=== PATIENT | female | born 1935 | race Caucasian/White ===

== ENCOUNTER 2017-12-30 13:39 | Emergency (ER) | payer MEDICARE, SELFPAY ==
[2017-12-30 13:52] VITALS: BP 109/65; PULSE 81; RESP 20; O2SAT 98; BMI 22.8
[2017-12-30 14:20] LABS: Basophils % 0.5 % (0.1-2.0); Eosinophils # 0.2 K/mm3 (0.0-0.4); Eosinophils % 2.2 % (0.1-12.0); Hematocrit 34.9 % (37.0-47.0); Hemoglobin 11.6 g/dL (12.2-16.2); Lymphocytes % 23.7 K/mm3 (10-50); Mean Corpuscular HGB Conc 33.3 g/dL (31.8-35.4); Mean Corpuscular Hemoglobin 29.4 pg (27.0-31.2); Mean Corpuscular Volume 88.3 fl (81-99); Mean Platelet Volume 7.7 fl (7.4-10.4); Monocytes # 0.5 K/mm3 (0.1-1.0); Monocytes % 6.3 % (1.7-9.3); Neutrophils # 5.6 K/mm3 (1.8-7.8); Neutrophils % 67.3 % (37.0-80.0); Platelet Count 402 K/mm3 (142-424); Red Blood Count 3.95 M/mm3 (4.20-5.40); Red Cell Distribution Width 12.7 % (11.5-17.5); White Blood Count 8.3 K/mm3 (4.8-10.8)
[2017-12-30 14:40] LABS: INR 1.36 (0.9-1.1); Prothrombin Time 14.7 seconds (9.4-11.8)
[2017-12-30 14:43] LABS: Alanine Aminotransferase 19 U/L (12-78); Albumin Level 2.3 gm/dL (3.4-5.0); Albumin/Globulin Ratio 0.7 (1.1-1.8); Alkaline Phosphatase 66 U/L (46-116); Anion Gap 12.3 mEq/L (5-15); Aspartate Amino Transferase 22 U/L (15-37); Bilirubin,Total 0.7 mg/dL (0.2-1.0); Blood Urea Nitrogen 17 mg/dL (7-18); Calcium 8.2 mg/dL (8.5-10.1); Carbon Dioxide 27 mmol/L (21.0-32.0); Chloride 101 mmol/L (98-107); Creatine Kinase 31 U/L (26-192); Creatinine Clearance Estimated 31 mL/min (0-300); Creatinine,Serum 1.25 mg/dL (0.55-1.02); Estimated Glomerular Filt Rate 41 ml/min (>60); GFR (African American) 50 ML/MIN (>60); Globulin 3.4 gm/dl (1.3-3.2); Glucose 180 mg/dL (74-106); Potassium 3.3 mmoL/L (3.5-5.1); Sodium 137 mmol/L (136-145); Total Protein,Serum 5.7 gm/dL (6.4-8.2); Troponin I < 0.02 ng/ml (0.00-0.06)
[2017-12-30 14:44] LABS: CKMB Relative Index 1.6 U/L (0-4.0); Creatine Kinase MB < 0.5 mg/ml (0.0-3.6)
--- NOTE | 2017-12-30 14:57 | [facility].EDCP ---
ED Disposition Clinical Impression: Abdominal pain Qualifiers: Abdominal location: unspecified location Qualified Code(s): R10.9 - Unspecified abdominal pain Disposition: Home, Self-Care Condition on Discharge: Good Instructions: DI for Abdominal Pain-Adult Additional Instructions: see pcp for follow up Referrals: Provider,Referral, [Primary Care Provider] - - Critical Care Critical Care Time: No Attestation: On 12/30/17, the high probability of a clinically significant, sudden or life threatening deterioration of the following system(s) required my full and direct attention, intervention and personal management. The time I documented below is in addition to time spent performing reported procedures but includes the following listed in this critical care notation. Medical Decision Making - Medical Records Medical records reviewed: Yes: I reviewed the patient's medical records. Vital Signs: 12/30/17 13:52 Pulse Rate [Right Brachial] 81 Respiratory Rate 20 Blood Pressure [Right Arm] 109/65 Blood Pressure Mean [Right Arm] 79 Blood Pressure Source [Right Arm] Automatic Cuff Blood Pressure Position [Right Arm] Supine 02 Sat by Pulse Oximetry 98 Oxygen Delivery Method Room Air - Lab Data Lab Results 12/30/17 14:10: WBC 8.3, RBC 3.95 L, Hgb 11.6 L, Hct 34.9 L, MCV 88.3, MCH 29.4, MCHC 33.3, RDW 12.7, Plt Count 402, MPV 7.7, Neut % (Auto) 67.3, Lymph % (Auto) 23.7, [place] % (Auto) 6.3, Eos % (Auto) 2.2, Baso % (Auto) 0.5, Neut # (Auto) 5.6, Lymph # (Auto) 2.0, [place] # (Auto) 0.5, Eos # (Auto) 0.2, Baso # (Auto) 0.0 12/30/17 14:10: PT 14.7 H, INR 1.36 H 12/30/17 14:10: Sodium 137, Potassium 3.3 L, Chloride 101, Carbon Dioxide 27, Anion Gap 12.3, BUN 17, Creatinine 1.25 H, Estimated Creat Clear 31, Estimated GFR 41 L, Est GFR ( Amer) 50 L, Glucose 180 H, Calcium 8.2 L, Total Bilirubin 0.7, AST 22, ALT 19, Alkaline Phosphatase 66, Total Creatine Kinase 31, CK-MB (CK-2) < 0.5, CK-MB (CK-2) Rel Index 1.6, Troponin I < 0.02, Total Protein 5.7 L, Albumin 2.3 L, Globulin 3.4 H, Albumin/Globulin Ratio 0.7 L Result diagrams: 12/30/17 14:10 12/30/17 14:10 Orders (Tests/Meds): ORDERS Category Date Time Status CT abdomen pelvis wo con Stat Cat Scan 12/30/17 14:06 Ordered Chest XR 2 view (NOT portable) [XR chest 2V] Stat Exams 12/30/17 14:11 Ordered - ECG Data Tracing #1 I reviewed this ECG and interpreted as documented below: Ischemic changes: non-specific ST-T wave changes - Peter Inquiry Pt receiving controlled substance: No Chest Pain HPI - General Stated Complaint: stomach pain Time Seen by Provider: 12/30/17 14:57 Mode of Arrival: Ambulatory Source of Information: Patient Limitations: No Limitations Description of Symptoms (Recalled from ER Triage Doc. by RN): PT C/O EPIGASTRIC PAIN FOR 3 DAYS. PT SAYS SHE HAS NO APPETITE. PT DENIES N/V/D. - History of Present Illness HPI narrative: pt denied any chst or abd pain - no vomiting MD complaint: other Severity: mild - Related Data Home Medications Medication Instructions Recorded Confirmed Amlodipine Besylate [Norvasc 10mg 10 mg PO DAILY 12/30/17 12/30/17 tablet] Atorvastatin Calcium [Atorvastatin 10 mg PO DAILY 12/30/17 12/30/17 10mg Tab] Carvedilol [Carvedilol 6.25mg Tab] 6.25 mg PO DAILY 12/30/17 12/30/17 Fenofibrate Nanocrystallized 145 mg PO DAILY 12/30/17 12/30/17 [Fenofibrate] Fluoxetine HCl [Prozac 20mg 20 mg PO DAILY 12/30/17 12/30/17 Capsule] Furosemide [Furosemide 20mg Tab] 20 mg PO DAILY 12/30/17 12/30/17 Levothyroxine Sodium 50 mcg PO DAILY 12/30/17 12/30/17 [Levothyroxine 50mcg (0.05mg) Tab] Loratadine [Claritin 10mg Tablet] 10 mg PO DAILY 12/30/17 12/30/17 Trazodone HCl 50 mg PO HS 12/30/17 12/30/17 Valsartan [Valsartan] 320 mg PO DAILY 12/30/17 12/30/17 Warfarin Sodium [Warfarin Sodium] 2.5 mg PO DAILY 12/30/17 12/30/17 glyBURIDE [Diabeta 5mg tablet] 5 mg PO DAILY 12/30/17
--- NOTE | 2017-12-30 15:00 | ED_ITS ---
ED Disposition Clinical Impression: Abdominal pain Qualifiers: Abdominal location: unspecified location Qualified Code(s): R10.9 - Unspecified abdominal pain Disposition: Home, Self-Care Condition on Discharge: Good Instructions: DI for Abdominal Pain-Adult Additional Instructions: see pcp for follow up Referrals: Provider,Referral, [Primary Care Provider] - - Critical Care Critical Care Time: No Attestation: On 12/30/17, the high probability of a clinically significant, sudden or life threatening deterioration of the following system(s) required my full and direct attention, intervention and personal management. The time I documented below is in addition to time spent performing reported procedures but includes the following listed in this critical care notation. Medical Decision Making - Medical Records Medical records reviewed: Yes: I reviewed the patient's medical records. Vital Signs: 12/30/17 13:52 Pulse Rate [Right Brachial] 81 Respiratory Rate 20 Blood Pressure [Right Arm] 109/65 Blood Pressure Mean [Right Arm] 79 Blood Pressure Source [Right Arm] Automatic Cuff Blood Pressure Position [Right Arm] Supine 02 Sat by Pulse Oximetry 98 Oxygen Delivery Method Room Air - Lab Data Lab Results 12/30/17 14:10: WBC 8.3, RBC 3.95 L, Hgb 11.6 L, Hct 34.9 L, MCV 88.3, MCH 29.4 , MCHC 33.3, RDW 12.7, Plt Count 402, MPV 7.7, Neut % (Auto) 67.3, Lymph % (Auto ) 23.7, [place] % (Auto) 6.3, Eos % (Auto) 2.2, Baso % (Auto) 0.5, Neut # (Auto) 5.6, Lymph # (Auto) 2.0, [place] # (Auto) 0.5, Eos # (Auto) 0.2, Baso # (Auto) 0.0 12/30/17 14:10: PT 14.7 H, INR 1.36 H 12/30/17 14:10: Sodium 137, Potassium 3.3 L, Chloride 101, Carbon Dioxide 27, Anion Gap 12.3, BUN 17, Creatinine 1.25 H, Estimated Creat Clear 31, Estimated GFR 41 L, Est GFR ( Amer) 50 L, Glucose 180 H, Calcium 8.2 L, Total Bilirubin 0.7, AST 22, ALT 19, Alkaline Phosphatase 66, Total Creatine Kinase 31 , CK-MB (CK-2) < 0.5, CK-MB (CK-2) Rel Index 1.6, Troponin I < 0.02, Total Protein 5.7 L, Albumin 2.3 L, Globulin 3.4 H, Albumin/Globulin Ratio 0.7 L Result diagrams: 12/30/17 14:10 12/30/17 14:10 Orders (Tests/Meds): ORDERS Category Date Time Status CT abdomen pelvis wo con Stat Cat Scan 12/30/17 14:06 Ordered Chest XR 2 view (NOT portable) [XR chest 2V] Stat Exams 12/30/17 14:11 Ordered - ECG Data Tracing #1 I reviewed this ECG and interpreted as documented below: Ischemic changes: non-specific ST-T wave changes - Peter Inquiry Pt receiving controlled substance: No Chest Pain HPI - General Stated Complaint: stomach pain Time Seen by Provider: 12/30/17 14:57 Mode of Arrival: Ambulatory Source of Information: Patient Limitations: No Limitations Description of Symptoms (Recalled from ER Triage Doc. by RN): PT C/O EPIGASTRIC PAIN FOR 3 DAYS. PT SAYS SHE HAS NO APPETITE. PT DENIES N/V/D. - History of Present Illness HPI narrative: pt denied any chst or abd pain - no vomiting MD complaint: other Severity: mild - Related Data Home Medications Medication Instructions Recorded Confirmed Amlodipine Besylate [Norvasc 10mg 10 mg PO DAILY 12/30/17 12/30/17 tablet] Atorvastatin Calcium [Atorvastatin 10 mg PO DAILY 12/30/17 12/30/17 10mg Tab] Carvedilol [Carvedilol 6.25mg Tab] 6.25 mg PO DAILY 12/30/17 12/30/17
[2017-12-30 15:04] VITALS: BP 130/70; PULSE 75; RESP 14; TEMP 36.8; O2SAT 98
== END 2017-12-30 15:05 | disposition home or self-care (01) ==
LOC: UTC 13:43 → ER 13:49
PROVIDERS: Emergency Provider Emergency Medicine
DX: R10.9 Unspecified abdominal pain (principal)
CPT/HCPCS: 80053; 82550; 82553; 84484; 85025; 85610; 93005; 99281

== ENCOUNTER 2018-01-27 15:07 | Emergency (ER) | payer MEDICARE, SELFPAY ==
[2018-01-27 15:23] VITALS: BP 135/73; PULSE 76; RESP 16; TEMP 36.7; O2SAT 97; BMI 23.0
--- NOTE | 2018-01-27 16:39 | [facility]H.EDWEAK ---
ED Disposition Clinical Impression: Weakness Disposition: Left Against Medical Advice Condition on Discharge: Good Instructions: DI for Fatigue Additional Instructions: Please cell dr. Asher's office and follow up with him in 2-3 days, for mandatory re-evaluation. Referrals: Gagan Asher [Primary Care Provider] - Time of Disposition: 16:40 - Critical Care Critical Care Time: No Attestation: On 01/27/18, the high probability of a clinically significant, sudden or life threatening deterioration of the following system(s) required my full and direct attention, intervention and personal management. The time I documented below is in addition to time spent performing reported procedures but includes the following listed in this critical care notation. Medical Decision Making - Medical Records Medical records reviewed: Yes: I reviewed the patient's medical records. Vital Signs: 01/27/18 15:23 01/27/18 17:30 Temperature 98.0 F 98.0 F Temperature Source Oral Pulse Rate 76 Pulse Rate [Left Radial] 76 Respiratory Rate 16 16 Blood Pressure 135/73 Blood Pressure [Left Arm] 135/73 Blood Pressure Mean [Left Arm] 93 Blood Pressure Source [Left Arm] Automatic Cuff Blood Pressure Position [Left Arm] Sitting 02 Sat by Pulse Oximetry 97 Oxygen Delivery Method Room Air Room Air - Peter Inquiry Pt receiving controlled substance: No - Reevaluation(s) Time: 16:38 Reevaluation #1: Patient wants to leave against medical advice, she is AAOx3, competent to make medical decisions, was made aware of possible complications associated with her departure, including , loss of current lifestyle, etc. Weakness HPI - General Chief complaint: Weakness Stated complaint: Weakness Mode of Arrival: Wheelchair Limitations: Physical Limitations Description of Symptoms (Recalled from ER Triage Doc. by RN): REPORTS WEAKNESS AND LOSS OF APPETITE. - History of Present Illness HPI Narrative: The patient is denying any symptoms, stating that she should not be here, refuses any workup. MD Complaint: generalized weakness Onset (ago): unknown Duration: now resolved - Related Data Home Medications Medication Instructions Recorded Confirmed Amlodipine Besylate [Norvasc 10mg 10 mg PO DAILY 12/30/17 12/30/17 tablet] Atorvastatin Calcium [Atorvastatin 10 mg PO DAILY 12/30/17 12/30/17 10mg Tab] Carvedilol [Carvedilol 6.25mg Tab] 6.25 mg PO DAILY 12/30/17 12/30/17 Fenofibrate Nanocrystallized 145 mg PO DAILY 12/30/17 12/30/17 [Fenofibrate] Fluoxetine HCl [Prozac 20mg 20 mg PO DAILY 12/30/17 12/30/17 Capsule] Furosemide [Furosemide 20mg Tab] 20 mg PO DAILY 12/30/17 12/30/17 Levothyroxine Sodium 50 mcg PO DAILY 12/30/17 12/30/17 [Levothyroxine 50mcg (0.05mg) Tab] Loratadine [Claritin 10mg Tablet] 10 mg PO DAILY 12/30/17 12/30/17 Trazodone HCl 50 mg PO HS 12/30/17 12/30/17 Valsartan [Valsartan] 320 mg PO DAILY 12/30/17 12/30/17 Warfarin Sodium [Warfarin Sodium] 2.5 mg PO DAILY 12/30/17 12/30/17 glyBURIDE [Diabeta 5mg tablet] 5 mg PO DAILY 12/30/17 12/30/17 Allergies Allergy/AdvReac Type Severity Reaction Status Date / Time No Known Allergies Allergy Verified 01/27/18 15:29 [facility] History I have reviewed the patient's past medical history: Yes Medical History: Reports:: Diabetes Mellitus Type 2 - Social History Educational Level: Completed College Smoking Status: Never smoker Alcohol Intake: never - Psychiatric History Expresses thoughts of harming self/others: None Suicide Plan Description: No Plan ROS Obtained: Yes All systems reviewed & no additional complaints, Yes Systems reviewed as appropriate & no additional complaints - Gastrointestinal Gastrointestingal: Reports: as per HPI, other (loss of appetite, but the patient is now denying any active symptoms) Physical Exam - General General appearance: alert, in no apparent distress - Head Head exam: atraumatic, normocephali
--- NOTE | 2018-01-27 16:42 | ED_ITS ---
ED Disposition Clinical Impression: Weakness Disposition: Left Against Medical Advice Condition on Discharge: Good Instructions: DI for Fatigue Additional Instructions: Please cell dr. Asher's office and follow up with him in 2-3 days, for mandatory re-evaluation. Referrals: Gagan Asher [Primary Care Provider] - Time of Disposition: 16:40 - Critical Care Critical Care Time: No Attestation: On 01/27/18, the high probability of a clinically significant, sudden or life threatening deterioration of the following system(s) required my full and direct attention, intervention and personal management. The time I documented below is in addition to time spent performing reported procedures but includes the following listed in this critical care notation. Medical Decision Making - Medical Records Medical records reviewed: Yes: I reviewed the patient's medical records. Vital Signs: 01/27/18 15:23 01/27/18 17:30 Temperature 98.0 F 98.0 F Temperature Source Oral Pulse Rate 76 Pulse Rate [Left Radial] 76 Respiratory Rate 16 16 Blood Pressure 135/73 Blood Pressure [Left Arm] 135/73 Blood Pressure Mean [Left Arm] 93 Blood Pressure Source [Left Arm] Automatic Cuff Blood Pressure Position [Left Arm] Sitting 02 Sat by Pulse Oximetry 97 Oxygen Delivery Method Room Air Room Air - Peter Inquiry Pt receiving controlled substance: No - Reevaluation(s) Time: 16:38 Reevaluation #1: Patient wants to leave against medical advice, she is AAOx3, competent to make medical decisions, was made aware of possible complications associated with her departure, including , loss of current lifestyle, etc. Weakness HPI - General Chief complaint: Weakness Stated complaint: Weakness Mode of Arrival: Wheelchair Limitations: Physical Limitations Description of Symptoms (Recalled from ER Triage Doc. by RN): REPORTS WEAKNESS AND LOSS OF APPETITE. - History of Present Illness HPI Narrative: The patient is denying any symptoms, stating that she should not be here, refuses any workup. MD Complaint: generalized weakness Onset (ago): unknown Duration: now resolved - Related Data Home Medications Medication Instructions Recorded Confirmed Amlodipine Besylate [Norvasc 10mg 10 mg PO DAILY 12/30/17 12/30/17 tablet] Atorvastatin Calcium [Atorvastatin 10 mg PO DAILY 12/30/17 12/30/17 10mg Tab] Carvedilol [Carvedilol 6.25mg Tab] 6.25 mg PO DAILY 12/30/17 12/30/17 Fenofibrate Nanocrystallized 145 mg PO DAILY 12/30/17 12/30/17 [Fenofibrate] Fluoxetine HCl [Prozac 20mg 20 mg PO DAILY 12/30/17 12/30/17 Capsule] Furosemide [Furosemide 20mg Tab] 20 mg PO DAILY 12/30/17 12/30/17 Levothyroxine Sodium 50 mcg PO DAILY 12/30/17 12/30/17 [Levothyroxine 50mcg (0.05mg) Tab] Loratadine [Claritin 10mg Tablet] 10 mg PO DAILY 12/30/17 12/30/17 Trazodone HCl 50 mg PO HS 12/30/17 12/30/17 Valsartan [Valsartan] 320 mg PO DAILY 12/30/17 12/30/17 Warfarin Sodium [Warfarin Sodium] 2.5 mg PO DAILY 12/30/17 12/30/17 glyBURIDE [Diabeta 5mg tablet] 5 mg PO DAILY 12/30/17 12/30/17 Allergies Allergy/AdvReac Type Severity Reaction Status Date / Time No Known Allergies Allergy Verified 01/27/18 15:29 [facility] History I have reviewed
[2018-01-27 17:30] VITALS: BP 135/73; PULSE 76; RESP 16; TEMP 36.7; O2SAT 97
== END 2018-01-27 17:15 | disposition left against medical advice (07) ==
PROVIDERS: Emergency Provider Emergency Medicine; PCP Family Medicine
DX: R53.1 Weakness (principal); Z53.21 Procedure and treatment not carried out due to patient leaving prior to being seen by health care provider; E11.9 Type 2 diabetes mellitus without complications; Z79.01 Long term (current) use of anticoagulants; Z79.84 Long term (current) use of oral hypoglycemic drugs; Z79.899 Other long term (current) drug therapy
CPT/HCPCS: 99281

== ENCOUNTER 2018-02-06 11:32 | Emergency (ER) | payer MEDICARE, SELFPAY ==
[2018-02-06 11:34] VITALS: BP 139/82; PULSE 85; RESP 16; TEMP 37.1; O2SAT 98; BMI 24.3
[2018-02-06 11:39] VITALS: BMI 23.6
--- NOTE | 2018-02-06 11:41 | XR_ITS ---
XR chest portable HISTORY: ITS.REASON: chest pain ORDERING PHYSICIAN: PATIENT AGE: 82 years COMPARISON: 10/03/2016 FINDINGS: The cardiomediastinal silhouette and pulmonary vascularity are within normal limits. Small patchy area of increased density is present in the left lower lung zone adjacent to the heart and could be due to small area of atelectasis or infiltrate or interval developing fibrotic change. The remaining lungs are clear aside from a calcified granuloma in the right midlung. IMPRESSION: Patchy density left mid to lower lung zone which may be due to an area of atelectasis or infiltrate or developing fibrosis
--- NOTE | 2018-02-06 11:44 | [facility]H.EDCP ---
ED Disposition Clinical Impression: Stable angina Disposition: Home, Self-Care Condition on Discharge: Good Additional Instructions: See your color buffer for follow up in one week; continue current medications. Referrals: Gagan Asher [Primary Care Provider] - Julio Mcfadden MD [Staff Physician] - - Critical Care Critical Care Time: No Attestation: On , the high probability of a clinically significant, sudden or life threatening deterioration of the following system(s) required my full and direct attention, intervention and personal management. The time I documented below is in addition to time spent performing reported procedures but includes the following listed in this critical care notation. Medical Decision Making - Medical Records Medical records reviewed: Yes: I reviewed the patient's medical records. Vital Signs: 02/06/18 11:34 Temperature 98.8 F Temperature Source Oral Pulse Rate [Right Radial] 85 Respiratory Rate 16 Blood Pressure [Right Arm] 139/82 Blood Pressure Mean [Right Arm] 101 Blood Pressure Source [Right Arm] Automatic Cuff Blood Pressure Position [Right Arm] Supine 02 Sat by Pulse Oximetry 98 Oxygen Delivery Method Room Air - Lab Data Lab results reviewed: Yes: I reviewed the patient's lab results. Lab Results 02/06/18 11:42: WBC 6.7, RBC 4.46, Hgb 12.7, Hct 40.9, MCV 91.8, MCH 28.5, MCHC 31.1 L, RDW 13.2, Plt Count 346, MPV 7.7, Neut % (Auto) 51.2, Lymph % (Auto) 40.4, [place] % (Auto) 5.0, Eos % (Auto) 2.7, Baso % (Auto) 0.7, Neut # (Auto) 3.4, Lymph # (Auto) 2.7, [place] # (Auto) 0.3, Eos # (Auto) 0.2, Baso # (Auto) 0.1 02/06/18 11:42: Sodium 135 L, Potassium 3.1 L, Chloride 100, Carbon Dioxide 28, Anion Gap 10.1, BUN 9, Creatinine 1.24 H, Estimated Creat Clear 33, Estimated GFR 41 L, Est GFR ( Amer) 50 L, Glucose 218 H, Calcium 8.1 L, Total Bilirubin 0.6, AST 20, ALT 19, Alkaline Phosphatase 112, Total Creatine Kinase 33, CK-MB (CK-2) < 0.5, CK-MB (CK-2) Rel Index 1.5, Troponin I < 0.02, Total Protein 6.4, Albumin 2.4 L, Globulin 4.0 H, Albumin/Globulin Ratio 0.6 L 02/06/18 11:42: PT 11.3, INR 1.05 02/06/18 14:04: Troponin I < 0.02 Result diagrams: 02/06/18 11:42 02/06/18 11:42 Orders (Tests/Meds): ED MEDICATIONS Discontinued Medications Generic Name Dose Route Start Last Admin Trade Name Franklin PRN Reason Stop Dose Admin Aspirin 324 mg 02/06/18 11:41 02/06/18 11:43 Aspirin 81mg Chewable Tablet PO 02/06/18 11:42 324 mg ONCE ONE Administration - Radiology Data #1 Image(s): Chest Image Reviewed: Yes I have reviewed radiologist's interpretation Preliminary Findings: Abnormal (possible atelectasis or fibrosis on L seen by radiology; (no clin correlation for pneumonia:)) - ECG Data Tracing #1 I reviewed this ECG and interpreted as documented below: NSR, ST depression seen in December 30, 2017 laterally, but more pronounced today; also seeing some ischemic changes inferiorly today that are new ST depression. No ectopy/. ECG initial impression date: 02/06/18 ECG initial impression time: 11:28 (EKG done at 11:28 MD at bedside) Normal Sinus Rhythm: Yes - Physician Consults Physician Consulted: Jeff ZHANG/karlee Reason -: Cardiology Eval/Care - Peter Inquiry Pt receiving controlled substance: No Medical Decision Making Narrative: Cardiology requested second trop which was nl; they requested ECHO which showed very mod AI, small fluid around heart; EF 55-60 per cent; patient stable and no complaints at d/c Chest Pain HPI - General Stated Complaint: chest pain Time Seen by Provider: 02/06/18 11:35 Mode of Arrival: Ambulatory Source of Information: Patient, Relative Limitations: No Limitations - History of Present Illness HPI narrative: Patient states that she woke up this morning sometime before 7:00. That point she had not eaten breakfast and had not experienced any chest pain. She was at rest she had a brief episode
--- NOTE | 2018-02-06 11:48 | ED_ITS ---
ED Disposition Clinical Impression: Stable angina Disposition: Home, Self-Care Condition on Discharge: Good Additional Instructions: See your signs sales representative for follow up in one week; continue current medications. Referrals: Gagan Asher [Primary Care Provider] - Julio Mcfadden MD [Staff Physician] - - Critical Care Critical Care Time: No Attestation: On , the high probability of a clinically significant, sudden or life threatening deterioration of the following system(s) required my full and direct attention, intervention and personal management. The time I documented below is in addition to time spent performing reported procedures but includes the following listed in this critical care notation. Medical Decision Making - Medical Records Medical records reviewed: Yes: I reviewed the patient's medical records. Vital Signs: 02/06/18 11:34 Temperature 98.8 F Temperature Source Oral Pulse Rate [Right Radial] 85 Respiratory Rate 16 Blood Pressure [Right Arm] 139/82 Blood Pressure Mean [Right Arm] 101 Blood Pressure Source [Right Arm] Automatic Cuff Blood Pressure Position [Right Arm] Supine 02 Sat by Pulse Oximetry 98 Oxygen Delivery Method Room Air - Lab Data Lab results reviewed: Yes: I reviewed the patient's lab results. Lab Results 02/06/18 11:42: WBC 6.7, RBC 4.46, Hgb 12.7, Hct 40.9, MCV 91.8, MCH 28.5, MCHC 31.1 L, RDW 13.2, Plt Count 346, MPV 7.7, Neut % (Auto) 51.2, Lymph % (Auto) 40.4, [place] % (Auto) 5.0, Eos % (Auto) 2.7, Baso % (Auto) 0.7, Neut # (Auto) 3.4 , Lymph # (Auto) 2.7, [place] # (Auto) 0.3, Eos # (Auto) 0.2, Baso # (Auto) 0.1 02/06/18 11:42: Sodium 135 L, Potassium 3.1 L, Chloride 100, Carbon Dioxide 28, Anion Gap 10.1, BUN 9, Creatinine 1.24 H, Estimated Creat Clear 33, Estimated GFR 41 L, Est GFR ( Amer) 50 L, Glucose 218 H, Calcium 8.1 L, Total Bilirubin 0.6, AST 20, ALT 19, Alkaline Phosphatase 112, Total Creatine Kinase 33, CK-MB (CK-2) < 0.5, CK-MB (CK-2) Rel Index 1.5, Troponin I < 0.02, Total Protein 6.4, Albumin 2.4 L, Globulin 4.0 H, Albumin/Globulin Ratio 0.6 L 02/06/18 11:42: PT 11.3, INR 1.05 02/06/18 14:04: Troponin I < 0.02 Result diagrams: 02/06/18 11:42 02/06/18 11:42 Orders (Tests/Meds): ED MEDICATIONS Discontinued Medications Generic Name Dose Route Start Last Admin Trade Name Teodoroq PRN Reason Stop Dose Admin Aspirin 324 mg 02/06/18 11:41 02/06/18 11:43 Aspirin 81mg Chewable Tablet PO 02/06/18 11:42 324 mg ONCE ONE Administration - Radiology Data #1 Image(s): Chest Image Reviewed: Yes I have reviewed radiologist's interpretation Preliminary Findings: Abnormal (possible atelectasis or fibrosis on L seen by radiology; (no clin correlation for pneumonia:)) - ECG Data Tracing #1 I reviewed this ECG and interpreted as documented below: NSR, ST depression seen in December 30, 2017 laterally, but more pronounced today ; also seeing some ischemic changes inferiorly today that are new ST depression. No ectopy/. ECG initial impression date: 02/06/18 ECG initial impression time: 11:28 (EKG done at 11:28 MD at bedside) Normal Sinus Rhythm: Yes - Physician Consults Physician Consulted: Jeff ZHANG/card Reason -: Cardiology Eval/Care - Peter Inquiry Pt receiving controlled substance: No Medical Decision Making Narrative: Cardiology requested second trop w
[2018-02-06 11:52] LABS: Basophils # 0.1 K/mm3 (0-0.2); Basophils % 0.7 % (0.1-2.0); Eosinophils # 0.2 K/mm3 (0.0-0.4); Eosinophils % 2.7 % (0.1-12.0); Hematocrit 40.9 % (37.0-47.0); Hemoglobin 12.7 g/dL (12.2-16.2); Lymphocytes # 2.7 K/mm3 (0.7-4.5); Lymphocytes % 40.4 K/mm3 (10-50); Mean Corpuscular HGB Conc 31.1 g/dL (31.8-35.4); Mean Corpuscular Hemoglobin 28.5 pg (27.0-31.2); Mean Corpuscular Volume 91.8 fl (81-99); Mean Platelet Volume 7.7 fl (7.4-10.4); Monocytes # 0.3 K/mm3 (0.1-1.0); Neutrophils # 3.4 K/mm3 (1.8-7.8); Neutrophils % 51.2 % (37.0-80.0); Platelet Count 346 K/mm3 (142-424); Red Blood Count 4.46 M/mm3 (4.20-5.40); Red Cell Distribution Width 13.2 % (11.5-17.5); White Blood Count 6.7 K/mm3 (4.8-10.8)
--- NOTE | 2018-02-06 11:52 | PC.NURSE ---
Pt resting on gurney with not complaints other than having mid sternal nod radiating chest pain without SOB or diaphoresis. Accompainied by sister and brother in law which assist with her history and symptoms.
[2018-02-06 12:16] LABS: Alanine Aminotransferase 19 U/L (12-78); Albumin Level 2.4 gm/dL (3.4-5.0); Albumin/Globulin Ratio 0.6 (1.1-1.8); Alkaline Phosphatase 112 U/L (46-116); Anion Gap 10.1 mEq/L (5-15); Aspartate Amino Transferase 20 U/L (15-37); Bilirubin,Total 0.6 mg/dL (0.2-1.0); Blood Urea Nitrogen 9 mg/dL (7-18); Calcium 8.1 mg/dL (8.5-10.1); Carbon Dioxide 28 mmol/L (21.0-32.0); Chloride 100 mmol/L (98-107); Creatine Kinase 33 U/L (26-192); Creatinine Clearance Estimated 33 mL/min (0-300); Creatinine,Serum 1.24 mg/dL (0.55-1.02); Estimated Glomerular Filt Rate 41 ml/min (>60); GFR (African American) 50 ML/MIN (>60); Glucose 218 mg/dL (74-106); Potassium 3.1 mmoL/L (3.5-5.1); Sodium 135 mmol/L (136-145); Total Protein,Serum 6.4 gm/dL (6.4-8.2); Troponin I < 0.02 ng/ml (0.00-0.06)
[2018-02-06 12:19] LABS: CKMB Relative Index 1.5 U/L (0-4.0); Creatine Kinase MB < 0.5 mg/ml (0.0-3.6)
[2018-02-06 12:37] LABS: INR 1.05 (0.9-1.1); Prothrombin Time 11.3 seconds (9.4-11.8)
--- NOTE | 2018-02-06 13:01 | CA_ITS ---
PROCEDURE: 2-D M-mode and color Doppler study INDICATIONS FOR THE TEST: Chest pain COPD Heart Murmur Tobacco Smoking Palpitations Fatigue Syncope Edema HypertensionxDiabetes Mellitus Rheumatic Fever SOB ENGEL Obesity Hyperlipidemiax Family History HD Additional History CAD, CM PATIENT INFORMATION HEIGHT: 5'3'' WEIGHT: 133 GENDER: Female B/P: 139/82 2-D/M-MODE INTERPRETATION: 2-D MEASUREMENTS OBSERVED VALUES IN CMS Right Ventricular Dimension (RVDd) 2.0 Interventricular Septum (Thickness)(IVsd) 1.2 Left Ventricular Internal Dimensions(LVIDd) 4.0 Left Ventricular Posterior Wall (Thickness)(LVPWd) 1.1 Aortic Root 2.4 Aortic Cusp Separation 1.3 Left Atrial Dimensions (LAD) 3.6 2D 1. Left atrium is mildly enlarged, left ventricle is normal size, there is mild concentric left ventricular hypertrophy present, visually estimated ejection fraction 55% with no obvious regional wall motion abnormality. 2. The right atrium and right ventricle are normal size and contractility. 3. The aortic valve is minimally thickened and fibrosed. 4. The mitral and tricuspid valve leaflets are minimally thickened. 5. The pulmonic valve is poorly visualized. 6. No significant pericardial effusion noted. DOPPLER INTERROGATION: Doppler interrogation of the aortic, mitral and tricuspid valvular presence of mild mitral and tricuspid regurgitation, tricuspid and jet velocity is insufficient for calculation of the right ventricular systolic pressure, grade 1 diastolic dysfunction seen with tissue Doppler evidence of raised left atrial pressure. Mild aortic insufficiency is also seen. CONCLUSION: 1. Mildly enlarged left atrium, normal left ventricular size, mild concentric left ventricular hypertrophy, visually estimated ejection fraction 55% with no obvious regional wall motion abnormality. Grade 1 diastolic dysfunction seen with tissue Doppler evidence of raised left atrial pressure. 2. Mild aortic, mild mitral and tricuspid regurgitation 3. No significant pericardial effusion noted.
--- NOTE | 2018-02-06 13:16 | HMH.CNCARD ---
History of Present Illness Consult date: 02/06/18 Requesting physician: Chantal Ball Consult reason: chest pain Chief complaint: Chest pain Additional Medical History:: 1. Mild coronary artery disease by cardiac catheterization 05/2015 2. Mention 3. Diabetes mellitus 4. History of paroxysmal atrial fibrillation for which patient has an elevated chads score and should be on Coumadin therapy but reportedly has been noncompliant. History of present illness: 82-year-old white female brought emergency department for reevaluation. ER physician reports that the patient had a brief episode of chest pain earlier today. Initial troponin has been normal. EKG shows ST-T changes in the inferior and lateral leads that are similar to previous EKGs with slightly more exacerbated. Patient denies any chest pain at this time. While she has been in the emergency department she has learned that her sister has and is insistent upon going home to take care of family matters. In talking with the people that brought the patient to the emergency room they were concerned also about hepatitis A due to recent news reports of people dying from this. Patient denies any nausea. She does not appear jaundiced. [facility] History Medical History: Reports:: Atrial Fibrillation, Coronary Artery Disease, Diabetes Mellitus Type 2 Denies:: Cancer, Diabetes Mellitus Type 1, MRSA Amputation: No Fractures: No - *Social History Smoking Status: Never smoker Alcohol Intake: never - Psychiatric History Expresses thoughts of harming self/others: None Suicide Plan Description: No Plan Meds Home Medications Medication Instructions Recorded Confirmed Type Amlodipine Besylate [Norvasc 10mg 10 mg PO DAILY 12/30/17 12/30/17 History tablet] Atorvastatin Calcium [Atorvastatin 10 mg PO DAILY 12/30/17 12/30/17 History 10mg Tab] Carvedilol [Carvedilol 6.25mg Tab] 6.25 mg PO DAILY 12/30/17 12/30/17 History Fenofibrate Nanocrystallized 145 mg PO DAILY 12/30/17 12/30/17 History [Fenofibrate] Fluoxetine HCl [Prozac 20mg 20 mg PO DAILY 12/30/17 12/30/17 History Capsule] Furosemide [Furosemide 20mg Tab] 20 mg PO DAILY 12/30/17 12/30/17 History Levothyroxine Sodium 50 mcg PO DAILY 12/30/17 12/30/17 History [Levothyroxine 50mcg (0.05mg) Tab] Loratadine [Claritin 10mg Tablet] 10 mg PO DAILY 12/30/17 12/30/17 History Trazodone HCl 50 mg PO HS 12/30/17 12/30/17 History Valsartan [Valsartan] 320 mg PO DAILY 12/30/17 12/30/17 History Warfarin Sodium [Warfarin Sodium] 2.5 mg PO DAILY 12/30/17 12/30/17 History glyBURIDE [Diabeta 5mg tablet] 5 mg PO DAILY 12/30/17 12/30/17 History Allergies Allergy/AdvReac Type Severity Reaction Status Date / Time No Known Allergies Allergy Verified 01/27/18 15:29 Review of Systems - *Cardiovascular Reports chest pain - *Respiratory Denies shortness of breath - *Gastrointestinal Denies nausea Exam Vital signs and Labs for Last 24 Hours: Temp Pulse Resp BP Pulse Ox 98.8 F 85 16 139/82 98 02/06/18 11:34 02/06/18 11:34 02/06/18 11:34 02/06/18 11:34 02/06/18 11:34 Laboratory Results - last 24 hr 02/06/18 11:42: WBC 6.7, RBC 4.46, Hgb 12.7, Hct 40.9, MCV 91.8, MCH 28.5, MCHC 31.1 L, RDW 13.2, Plt Count 346, MPV 7.7, Neut % (Auto) 51.2, Lymph % (Auto) 40.4, [place] % (Auto) 5.0, Eos % (Auto) 2.7, Baso % (Auto) 0.7, Neut # (Auto) 3.4, Lymph # (Auto) 2.7, [place] # (Auto) 0.3, Eos # (Auto) 0.2, Baso # (Auto) 0.1 02/06/18 11:42: Sodium 135 L, Potassium 3.1 L, Chloride 100, Carbon Dioxide 28, Anion Gap 10.1, BUN 9, Creatinine 1.24 H, Estimated Creat Clear 33, Estimated GFR 41 L, Est GFR ( Amer) 50 L, Glucose 218 H, Calcium 8.1 L, Total Bilirubin 0.6, AST 20, ALT 19, Alkaline Phosphatase 112, Total Creatine Kinase 33, CK-MB (CK-2) < 0.5, CK-MB (CK-2) Rel Index 1.5, Troponin I < 0.02, Total Protein 6.4, Albumin 2.4 L, Globulin 4.0 H, Albumin/Globulin Ratio 0.6 L 02/06/18 11:42: PT 11.3, INR 1.05
--- NOTE | 2018-02-06 13:19 | P.CONS_ITS ---
History of Present Illness Consult date: 02/06/18 Requesting physician: Chantal Ball Consult reason: chest pain Chief complaint: Chest pain Additional Medical History:: 1. Mild coronary artery disease by cardiac catheterization 05/2015 2. Mention 3. Diabetes mellitus 4. History of paroxysmal atrial fibrillation for which patient has an elevated chads score and should be on Coumadin therapy but reportedly has been noncompliant. History of present illness: 82-year-old white female brought emergency department for reevaluation. ER physician reports that the patient had a brief episode of chest pain earlier today. Initial troponin has been normal. EKG shows ST-T changes in the inferior and lateral leads that are similar to previous EKGs with slightly more exacerbated. Patient denies any chest pain at this time. While she has been in the emergency department she has learned that her sister has and is insistent upon going home to take care of family matters. In talking with the people that brought the patient to the emergency room they were concerned also about hepatitis A due to recent news reports of people dying from this. Patient denies any nausea. She does not appear jaundiced. [facility] History Medical History: Reports:: Atrial Fibrillation, Coronary Artery Disease, Diabetes Mellitus Type 2 Denies:: Cancer, Diabetes Mellitus Type 1, MRSA Amputation: No Fractures: No - *Social History Smoking Status: Never smoker Alcohol Intake: never - Psychiatric History Expresses thoughts of harming self/others: None Suicide Plan Description: No Plan Meds Home Medications Medication Instructions Recorded Confirmed Type Amlodipine Besylate [Norvasc 10mg 10 mg PO DAILY 12/30/17 12/30/17 History tablet] Atorvastatin Calcium [Atorvastatin 10 mg PO DAILY 12/30/17 12/30/17 History 10mg Tab] Carvedilol [Carvedilol 6.25mg Tab] 6.25 mg PO DAILY 12/30/17 12/30/17 History Fenofibrate Nanocrystallized 145 mg PO DAILY 12/30/17 12/30/17 History [Fenofibrate] Fluoxetine HCl [Prozac 20mg 20 mg PO DAILY 12/30/17 12/30/17 History Capsule] Furosemide [Furosemide 20mg Tab] 20 mg PO DAILY 12/30/17 12/30/17 History Levothyroxine Sodium 50 mcg PO DAILY 12/30/17 12/30/17 History [Levothyroxine 50mcg (0.05mg) Tab] Loratadine [Claritin 10mg Tablet] 10 mg PO DAILY 12/30/17 12/30/17 History Trazodone HCl 50 mg PO HS 12/30/17 12/30/17 History Valsartan [Valsartan] 320 mg PO DAILY 12/30/17 12/30/17 History Warfarin Sodium [Warfarin Sodium] 2.5 mg PO DAILY 12/30/17 12/30/17 History glyBURIDE [Diabeta 5mg tablet] 5 mg PO DAILY 12/30/17 12/30/17 History Allergies Allergy/AdvReac Type Severity Reaction Status Date / Time No Known Allergies Allergy Verified 01/27/18 15:29 Review of Systems - *Cardiovascular Reports chest pain - *Respiratory Denies shortness of breath - *Gastrointestinal Denies nausea Exam Vital signs and Labs for Last 24 Hours: Temp Pulse Resp BP Pulse Ox 98.8 F 85 16 139/82 98 02/06/18 11:34 02/06/18 11:34 02/06/18 11:34 02/06/18 11:34 02/06/18 11:34 Laboratory Results - last 24 hr 02/06/18 11:42: WBC 6.7, RBC 4.46, Hgb 12.7, Hct 40.9, MCV 91.8, MCH 28.5, MCHC 31.1 L, RDW 13.2, Plt Count 346, MPV 7.7, Neut % (Auto) 51.2, Lymph % (Auto) 40.4, [place] % (Auto) 5.0, Eos % (Auto) 2.7, Baso % (Auto) 0.7, Neut # (Auto) 3.4 , Lym
[2018-02-06 14:40] LABS: Troponin I < 0.02 ng/ml (0.00-0.06)
[2018-02-06 15:32] VITALS: BP 139/82; PULSE 85; RESP 16; TEMP 37.1; O2SAT 98
== END 2018-02-06 15:35 | disposition home or self-care (01) ==
PROVIDERS: Emergency Provider Emergency Medicine; PCP Family Medicine
DX: I20.8 Other forms of angina pectoris (principal); E11.65 Type 2 diabetes mellitus with hyperglycemia; Z79.4 Long term (current) use of insulin; I48.0 Paroxysmal atrial fibrillation; Z79.82 Long term (current) use of aspirin
CPT/HCPCS: 36415; 71045; 80053; 82550; 82553; 84484; 85025; 85610; 93005; 93306; 99283